=== PATIENT | male | born 1940 | race Caucasian/White ===

== ENCOUNTER → 2017-03-21 | Outpatient (CLI) | payer MEDICARE ==
[~2017-03-21] MED LIST: AMLO10TA2 PO; ASPI-621 PO; ATOR40TA78 PO; CARV-39 PO; CARV25TA12 PO; CLOP75TA PO; FURO-93 PO; FURO40TA6 PO; LISI-170 PO; LOSA1TAB18 PO; METO-93 PO; POTA10TA11 PO; POTA20TA91 PO; PRED10TA PO; TERA5CAP3 PO; TIOT18CA INH
== END | disposition home or self-care (01) ==
LOC: CFH 14:25 → EDSTATUS 15:00
PROVIDERS: ATTEND Internal Medicine Cardiovascular Disease
DX: I08.3 Combined rheumatic disorders of mitral, aortic and tricuspid valves (principal); I10 Essential (primary) hypertension; E78.5 Hyperlipidemia, unspecified; I25.2 Old myocardial infarction; Z95.1 Presence of aortocoronary bypass graft
CPT/HCPCS: 93306